=== PATIENT | female | born 1970 | race Caucasian/White ===

== ENCOUNTER 2016-08-13 08:48 | Outpatient (CLI) | payer OTHER ==
--- NOTE | 2016-08-13 09:27 | Mammography Report ---
BILATERAL MAMMOGRAM: FINDINGS: The breasts are almost entirely fat (<25% glandular). No mass, distortion, suspicious calcification, or skin change is seen. CAD was utilized. IMPRESSION: Negative mammogram. There is no mammographic evidence of malignancy. RECOMMENDATION: Follow-up per ACS guidelines. BI-RADS CATEGORY: 1 = Negative ACR BI-RADS MAMMOGRAPHIC CODES: 0 = Needs additional imaging evaluation; 1 = Negative; 2 = Benign; 3 = Probably benign; 4 = Suspicious; 5 = Malignant; 6 = Known biopsy-proven malignancy COMMENT: 1. Dense breast tissue, i.e., adenosis, fibrocystic changes, etc., may obscure an underlying neoplasm. 2. Approximately 10% of cancers are not detected with mammography. 3. A negative mammography report should not delay biopsy if a clinically suspicious mass is present. COMMENT: Patient follow-up letters are generated in [employer].
== END 2016-08-13 08:49 | disposition home or self-care (01) ==
LOC: MAMMO 08:48
DX: Z12.31 Encounter for screening mammogram for malignant neoplasm of breast (principal)
CPT/HCPCS: 77067; G0202

== ENCOUNTER 2017-02-24 12:26 | Outpatient (CLI) | payer OTHER ==
--- NOTE | 2017-02-24 14:05 | XRay Report ---
XRAY LEFT KNEE 4 THREE VIEWS: 02/24/17 CLINICAL: Left knee pain. FINDINGS: Mild medial joint space narrowing with small osteophytes. Moderate lateral joint space narrowing with small osteophytes and a vacuum phenomenon in the lateral joint. Patellofemoral joint osteoarthritis with small osteophytes. A prominent quadriceps enthesophyte. No joint effusion.Normal soft tissues. IMPRESSION: Moderately severe osteoarthritis with greater involvement of the lateral joint space.
== END 2017-02-24 12:27 | disposition home or self-care (01) ==
LOC: SPVIMAG 12:26
DX: M17.12 Unilateral primary osteoarthritis, left knee (principal)

== ENCOUNTER 2017-08-01 11:36 | Outpatient (CLI) | payer OTHER ==
--- NOTE | 2017-08-01 12:26 | Mammography Report ---
Bilateral mammogram: The patient presents with a history of 3 months of periodic pain in the upper right breast. No palpable findings. Routine views with a cc spot compression image of the right breast are compared to standard imaging obtained in July 2016. The breast pattern is that of intermediate fibroglandular density with asymmetric distribution bilaterally. There no interval changes and no suspicious findings. CAD used. Impression: Stable exam. Recommendation: Clinical followup. Any additional evaluation at this time should be done based on your concern. Otherwise, annual mammogram followup. BI-RADS CATEGORY: 1 = Negative ACR BI-RADS MAMMOGRAPHIC CODES: 0 = Needs additional imaging evaluation; 1 = Negative; 2 = Benign; 3 = Probably benign; 4 = Suspicious; 5 = Malignant; 6 = Known biopsy-proven malignancy COMMENT: 1. Dense breast tissue, i.e., adenosis, fibrocystic changes, etc., may obscure an underlying neoplasm. 2. Approximately 10% of cancers are not detected with mammography. 3. A negative mammography report should not delay biopsy if a clinically suspicious mass is present.
== END 2017-08-01 11:37 | disposition home or self-care (01) ==
LOC: SPVWC 11:36
DX: N64.4 Mastodynia (principal)
CPT/HCPCS: 77066

== ENCOUNTER 2017-08-15 13:26 | Outpatient (CLI) | payer OTHER | END 2017-08-15 13:27 | disposition home or self-care (01) | LOC: SPVWC 13:26 | DX: Z12.31 Encounter for screening mammogram for malignant neoplasm of breast (principal) | CPT/HCPCS: 77067 ==

== ENCOUNTER 2017-08-22 16:04 | Outpatient (CLI) | payer OTHER ==
--- NOTE | 2017-08-22 16:26 | XRay Report ---
XRAY RIGHT KNEE 3 THREE VIEWS: 08/22/17 16:04:00 CLINICAL: Right knee pain. FINDINGS: The medial and lateral joint spaces are normal. Patellofemoral joint osteoarthritis with narrowing of the joint space and superior and inferior osteophytes. No joint effusion. No fracture or dislocation. A few soft tissue calcifications. IMPRESSION: Patellofemoral joint osteoarthritis.
== END 2017-08-22 16:05 | disposition home or self-care (01) ==
LOC: SPVIMAG 16:04
DX: M17.11 Unilateral primary osteoarthritis, right knee (principal)